=== PATIENT | female | born 1940 | race Caucasian/White ===

== ENCOUNTER → 2016-11-09 | Outpatient (CLI) | payer BC, MEDICARE ==
[~2016-11-09] MED LIST: CELEBREX200 MG PO; Ecotrin PO; Feosol PO; SENOKOT S,PE1 TABLET PO; THERAGRAN1 TABLET PO; Vagifem VG; Vicodin,Lortab 5/500 PO; Zocor PO
== END | disposition home or self-care (01) ==
LOC: CDC 09:30
DX: M19.042 Primary osteoarthritis, left hand (principal); M79.642 Pain in left hand; R94.31 Abnormal electrocardiogram [ECG] [EKG]
CPT/HCPCS: 93000

== ENCOUNTER → 2017-02-14 | Outpatient (CLI) | payer BC, OTHER | END | disposition home or self-care (01) | LOC: NUC 09:49 | DX: M41.85 Other forms of scoliosis, thoracolumbar region (principal); M19.071 Primary osteoarthritis, right ankle and foot; M19.072 Primary osteoarthritis, left ankle and foot; R93.7 Abnormal findings on diagnostic imaging of other parts of musculoskeletal system; Z96.652 Presence of left artificial knee joint | CPT/HCPCS: 78315; A9503 ==

== ENCOUNTER → 2017-10-04 | Outpatient (CLI) | payer OTHER, BC | END | disposition home or self-care (01) | LOC: EKG 13:14 | DX: I05.1 Rheumatic mitral insufficiency (principal); I07.1 Rheumatic tricuspid insufficiency; I51.7 Cardiomegaly; I51.89 Other ill-defined heart diseases | CPT/HCPCS: 93306 ==